=== PATIENT | male | born 1935 | race Two or more races ===

== ENCOUNTER 2024-12-12 11:39 | Emergency (ER) | payer OTHER ==
[~2024-12-12] VITALS: Ht 175.3 cm; Wt 113.4 kg
[2024-12-12] MEDS ORDERED: IBERSARTAN (12:11)
[2024-12-12] MEDS ORDERED: 0.9 % SODIUM CHLORIDE 1,000 ML IV STA (12:23)
[2024-12-12] MEDS ORDERED: INSULIN REGULAR, HUMAN 1,000 UNIT/10 ML UNITS IV STA (12:25)
[2024-12-12 13:53] LABS: HEMATOCRIT 42.6 % (39.0-48.0); HEMOGLOBIN 14.7 g/dL (13-16.00); MEAN CELL VOLUME 83.2 fL (80.0-100.00); MEAN CORPUSCULAR HEMOGLOBIN 28.8 pg (27.00-32.0); MEAN CORPUSCULAR HGB CONC 34.6 g/dl (32.0-36.0); PLATELET COUNT 211 K/uL (150-450); RED BLOOD COUNT 5.12 M/uL (4.00-6.00); RED CELL DISTRIBUTION WIDTH 14.6 % (11.5-14.5)
[2024-12-12 14:09] LABS: ALBUMIN 3.2 gm/dL (3.4-5.0); BILIRUBIN TOTAL 0.57 mg/dL (0.3-1.2); BILIRUBIN,CONJUGATED 0.17 mg/dL (0.0-0.2); BILIRUBIN,UNCONJUGATED 0.4 mg/dL (0.0-0.6); CALCIUM 8.8 mg/dL (8.5-10.1); CREATININE SERUM 0.95 mg/dL (0.70-1.30); GFR 74.65; POTASSIUM 3.54 mEq/L (3.5-5.1); TOTAL PROTEIN 6.8 gm/dL (6.4-8.2)
[2024-12-12 15:56] LABS: URINE APPEARANCE Clear; URINE BILIRRUBIN Negative (NEGATIVE); URINE BLOOD Negative; URINE COLOR Yellow; URINE KETONE Trace (NEGATIVE); URINE LEUKOCYTE Small; URINE NITRATE Positive; URINE PROTEIN 30 (NEGATIVE); URINE UROBILINOGEN 0.2 E.U./dl
[2024-12-12 16:00] LABS: URINE RBC 4.5 uL (0.0-20.8); URINE WBC 253.4 uL (0.0-23.2)
[2024-12-12 16:34] LABS: URINE BACTERIA > 9821.5 uL (0.0-1933); URINE CAST 0.14 uL (0.0-1.40); URINE GLUCOSE >=1000 MG/DL (NEGATIVE)
[2024-12-12 16:35] LABS: URINE CRYSTALS NEGATIVE /HPF; URINE MUCUS HEAVY; URINE YEAST NEGATIVE /hpf
== END 2024-12-12 17:40 | disposition home or self-care (01) ==
LOC: ER 11:39
PROVIDERS: General Practice
DX: R73.9 Hyperglycemia, unspecified (principal); N39.0 Urinary tract infection, site not specified
CPT/HCPCS: 36415; 93005; 96365; 99282; J1815; J7030

== ENCOUNTER 2025-01-31 16:59 | Emergency (ER) | payer OTHER ==
[~2025-01-31] VITALS: Ht 177.8 cm; Wt 136.1 kg
[~2025-01-31 16:59] MED LIST: IBERSARTAN
[2025-01-31] MEDS ORDERED: AMLODIPINE-OLM1 EAC2 (17:11)
[2025-01-31] MEDS ORDERED: NEURONTIN300 MG (17:11)
[2025-01-31] MEDS ORDERED: ELIQUIS2.5 MG (17:11)
[2025-01-31] MEDS ORDERED: PROTONIX20 MG (17:12)
[2025-01-31] MEDS ORDERED: LEVALBUTEROL HCL 1.25 MG/3 ML SOLUTION IH ONE (17:46)
[2025-01-31] MEDS ORDERED: IPRATROPIUM BROMIDE 0.5 MG/2.5 ML AMPUL.NEB IH ONE (17:46)
[2025-01-31 17:47] LABS: ABG PH 7.433 (7.35-7.45); ABG PO2 94.5 mmHg (80-100); ABG pCO2 33.9 mmHg (35-45); BASE EXCESS -1.3 mmol/l; BICARBONATE 22.2 mmol/l (23-25); SaO2 97.5 %; Tco2 23.2 mmol/l
[2025-01-31] MEDS ORDERED: IPRATROPIUM BROMIDE 0.5 MG/2.5 ML AMPUL.NEB IH SCH (18:00)
[2025-01-31] MEDS ORDERED: LEVALBUTEROL HCL 1.25 MG/3 ML SOLUTION IH SCH (18:00)
[2025-01-31 18:17] LABS: BASO % 0.2 % (0.1-1.2); EOS % 2.9 % (0.7-7.0); HEMATOCRIT 34.7 % (40.1-51.0); HEMOGLOBIN 11.5 g/dL (13.7-17.5); LYMPH # 1.31 (1.18-3.74); LYMPH % 7.6 % (19.3-53.1); MEAN CORPUSCULAR HEMOGLOBIN 27.1 pg (25.6-32.2); MONO # 1.43 (0.24-0.82); MONO % 8.3 % (4.7-12.5); NEUT # 13.74 (1.56-6.13); NEUT % 80.4 % (34.0-71.1); PLATELET COUNT 399 K/uL (163-369); RED BLOOD COUNT 4.24 M/uL (4.63-6.08); RED CELL DISTRIBUTION WIDTH 14.6 % (11.6-14.4)
[2025-01-31 18:25] LABS: allen test SATISFACTORY; mode NASAL CANNULA; o2 32 %; puncture site RADIAL LEFT
[2025-01-31 18:36] LABS: COVID-19 AG NEGATIVE (NEGATIVE); INFLUENZA A AG NEGATIVE (NEGATIVE); INFLUENZA B AG NEGATIVE (NEGATIVE)
[2025-01-31 18:40] LABS: POTASSIUM 4.14 mEq/L (3.5-5.1)
[2025-01-31 18:45] LABS: INR 1.1; PARTIAL THROMBOPLASTIN TIME 27.6 SECONDS (22.0-34.0); PROTHROMBIN TIME 11.9 SECONDS (9.0-11.5)
[2025-01-31 18:47] LABS: ALBUMIN 2.5 gm/dL (3.4-5.0); BILIRUBIN TOTAL 1.53 mg/dL (0.3-1.2); CALCIUM 8.7 mg/dL (8.5-10.1); CREATININE SERUM 1.75 mg/dL (0.70-1.30); GFR 36.88; GLOBULINA 3.7 G/DL (2.4-3.5); TOTAL PROTEIN 6.2 gm/dL (6.4-8.2)
[2025-01-31] MEDS ORDERED: PIPERACILLIN/TAZOBACTAM SODIUM 3.375 GM VIAL IV ONE ×2 (19:45→20:32)
[2025-01-31] MEDS ORDERED: 0.9 % SODIUM CHLORIDE 500 ML IV ONE (20:45)
[2025-01-31 21:34] LABS: PH,URINE 5.5 (5.0-8.0); URINE APPEARANCE Clear; URINE BILIRRUBIN Negative (NEGATIVE); URINE BLOOD Negative; URINE COLOR Yellow; URINE GLUCOSE Negative (NEGATIVE); URINE KETONE Negative (NEGATIVE); URINE LEUKOCYTE Small; URINE NITRATE Positive; URINE PROTEIN Negative (NEGATIVE); URINE UROBILINOGEN 0.2 E.U./dl
[2025-01-31] MEDS ORDERED: HALOPERIDOL LACTATE 5 MG/ML AMPUL ONE (21:40)
[2025-01-31 21:41] LABS: URINE EPITHELIAL CELLS 11.8 uL (0.0-38.8); URINE RBC 13.4 uL (0.0-20.8); URINE WBC 63.9 uL (0.0-23.2)
[2025-01-31] MEDS ORDERED: METHYLPREDNISOLONE SOD SUCC 40 MG VIAL ONE (21:41)
[2025-01-31] MEDS ORDERED: HALOPERIDOL LACTATE 5 MG/ML AMPUL IM ONE (21:45)
[2025-01-31] MEDS ORDERED: METHYLPREDNISOLONE SOD SUCC 125 MG VIAL IV ONE (21:45)
[2025-01-31 22:14] LABS: URINE BACTERIA > 9821.5 uL (0.0-1933); URINE CAST 0.29 uL (0.0-1.40)
[2025-01-31] MEDS ORDERED: DIPHENHYDRAMINE HCL 50 MG/ML VIAL 1ML IM ONE (22:15)
[2025-01-31] MEDS ORDERED: LORazepam 2 MG/ML VIAL IM ONE (22:15)
[2025-01-31] MEDS ORDERED: DIPHENHYDRAMINE HCL 50 MG/ML VIAL 1ML ONE (22:29)
[2025-01-31] MEDS ORDERED: LORazepam 2 MG/ML VIAL ONE (22:30)
[2025-02-01] MEDS ORDERED: METHYLPREDNISOLONE SOD SUCC 125 MG VIAL ONE (02:34)
== END 2025-02-01 15:12 | disposition designated cancer center or children's hospital (05) ==
LOC: ER 16:59
PROVIDERS: General Practice
DX: R41.0 Disorientation, unspecified (principal); I10 Essential (primary) hypertension; E11.9 Type 2 diabetes mellitus without complications; Z20.822 Contact with and (suspected) exposure to COVID-19
CPT/HCPCS: 36415; 51702; 70450; 71045; 71250; 73501; 73551; 82803; 93005; 93041 ×2; 94640; 96365; 96366; 96372; 99285; J1200; J2543; J3490 ×3; J7042